=== PATIENT | female | born 1970 | race African-American/Black ===

== ENCOUNTER 2016-12-11 18:22 | Emergency (ER) | payer OTHER ==
[~2016-12-11] VITALS: Ht 180.3 cm; Wt 101.6 kg
[2016-12-11 20:21] LABS: HEMATOCRIT 35.3 % (36.0-46.0); MCH 27.1 PG (29.0-34.0); MCHC 33.7 G/DL (30.0-36.0); MCV 80.4 FL (83-99); MEAN PLAT.VOLUME 9.3 uM^3 (9.5-12.4); PLATELET COUNT 316 K/uL (156-360); RBC DIS.WIDTH-SD 37.1 % (39-53); RED BLOOD COUNT 4.39 M/uL (3.80-5.20); WHITE BLOOD COUNT 3.8 K/uL (4.1-10.2)
[2016-12-11 20:39] LABS: CHLORIDE 103 mEq/L (99-109); POTASSIUM 3.7 mEq/L (3.7-5.4); SODIUM 137 mEq/L (136-147)
[2016-12-11 20:41] LABS: GLUCOSE 97 mg/dL (70-99)
[2016-12-11 20:42] LABS: ANION GAP 7 MEQ/L (2-14)
[2016-12-11 20:45] LABS: GFR ESTIMATE (CALCULATED) > 59 mL/min/; UREA NITROGEN (BUN) 11 mg/dL (9-23)
[2016-12-11 20:46] LABS: TROP-I INTERPRETATION NEGATIVE; TROPONIN-I < 0.01 ng/mL (0.0-0.30)
[2016-12-11 22:53] LABS: D-DIMER ELISA 0.62 mg/L FEU (< 0.57)
[2016-12-11 23:03] LABS: TROP-I INTERPRETATION NEGATIVE; TROPONIN-I < 0.01 ng/mL (0.0-0.30)
[2016-12-12] MEDS ORDERED: NAPROSYN500 MG PO (00:38)
[2016-12-12 00:50] VITALS: BP 126/89
== END 2016-12-12 00:53 | disposition home or self-care (01) ==
LOC: EME 18:22
PROVIDERS: Nurse Practitioner Family
DX: R07.81 Pleurodynia (principal); R07.89 Other chest pain; I10 Essential (primary) hypertension
CPT/HCPCS: 71020; 71275; 80048; 84484; 85027; 85379; 93005; 99281; 99285

== ENCOUNTER 2018-02-11 05:25 | Emergency (ER) | payer OTHER ==
[~2018-02-11] VITALS: Ht 180.3 cm; Wt 101.3 kg
[~2018-02-11 05:25] MED LIST: NAPROSYN500 MG PO
[2018-02-11] MEDS ORDERED: NORCO 5/3251 TABLET PO (05:39)
[2018-02-11] MEDS ORDERED: MEDROL DOSEPAK4 MG PO (05:39)
[2018-02-11] MEDS ORDERED: ROBAXIN750 MG PO (05:39)
[2018-02-11 06:03] VITALS: BP 118/75
== END 2018-02-11 06:05 | disposition home or self-care (01) ==
LOC: EME 05:25
DX: M54.42 Lumbago with sciatica, left side (principal); G89.29 Other chronic pain
CPT/HCPCS: 99281; 99284; J7512